=== PATIENT | female | born 1950 | race Caucasian/White ===

== ENCOUNTER → 2020-04-20 | Outpatient (CLI) | payer MEDICARE, OTHER ==
[~2020-04-20] MED LIST: CBD SL; CENTRUM SILVER1 EAC1 PO; HYDROCHLOROTHIA25 MG PO; NORVASC2.5 MG PO; OS-CAL 500+D31 EACH PO; RESTASIS 0.05%1 EACH OP; VITAMIN D32000 UNI1 PO; ZEBETA 5 MG TAB5 MG PO; ZESTRIL40 MG PO; ZOCOR10 MG PO
== END ==
LOC: MAMO 03-31 08:30
DX: Z12.31 Encounter for screening mammogram for malignant neoplasm of breast (principal)
CPT/HCPCS: 77063; 77067

== ENCOUNTER → 2021-04-10 | Outpatient (CLI) | payer MEDICARE, OTHER | LOC: US 09:28 | DX: N28.89 Other specified disorders of kidney and ureter (principal); Q45.3 Other congenital malformations of pancreas and pancreatic duct; K76.0 Fatty (change of) liver, not elsewhere classified | CPT/HCPCS: 74170; 76700; Q9967 ==

== ENCOUNTER → 2021-05-10 | Outpatient (CLI) | payer MEDICARE, OTHER | LOC: MAMO 05-02 08:30 | DX: Z12.31 Encounter for screening mammogram for malignant neoplasm of breast (principal) | CPT/HCPCS: 77063; 77067 ==

== ENCOUNTER → 2021-06-27 | Outpatient (CLI) | payer MEDICARE, OTHER | LOC: KOH-I 09:46 | DX: R91.8 Other nonspecific abnormal finding of lung field (principal) | CPT/HCPCS: 71250 ==

== ENCOUNTER → 2021-10-05 | Outpatient (CLI) | payer MEDICARE, OTHER | LOC: KOH-I 11:27 | DX: R91.1 Solitary pulmonary nodule (principal); I88.8 Other nonspecific lymphadenitis | CPT/HCPCS: 71250 ==